=== PATIENT | female | born 1955 | race Caucasian/White ===

== ENCOUNTER → 2017-10-07 | Outpatient (CLI) | payer OTHER ==
[~2017-10-07] MED LIST: ATORVASTATIN CA40 MG PO; LEVOTHYROXIN0.075 M1 PO; LISINOPRIL10 MG PO; NORVASC 5MG. TAB5 MG PO
[2017-10-07 12:45] LABS: BUN 12 mg/dL (7-18)
[2017-10-07 12:46] LABS: GFR (ESTIMATED) 51 ML/MIN (59-)
== END ==
LOC: LAB 10:47
PROVIDERS: Otolaryngology
DX: H90.3 Sensorineural hearing loss, bilateral (principal)